=== PATIENT | male | born 1990 | race Caucasian/White ===

== ENCOUNTER 2018-01-14 22:56 | Emergency (ER) | payer BC ==
[2018-01-14 22:56] VITALS: BMI 25.5
[2018-01-14] MEDS ORDERED: DiphenhydrAMINE 50 mg/ml Inj ONE (23:06)
--- NOTE | 2018-01-14 23:06 | C.PDOC ---
History Of Present Illness 27 year old male presents to the emergency department status-post eating rice, which may have had seafood in it. Patient states that he began wheezing, and felt like his throat was closing. Patient describes his discomfort as 5/10 in severity, but he denies fever, chills, nausea, and vomiting. Patient is able to tolerate PO. Time Seen by Provider: 01/14/18 23:05 Chief Complaint (Nursing): Allergic Reaction History Per: Patient History/Exam Limitations: no limitations Onset/Duration Of Symptoms: Hrs Current Symptoms Are (Timing): Still Present Context: Food Associated Symptoms: Other (wheezing) Severity: Moderate Pain Scale Rating Of: 5 Past Medical History Reviewed: Historical Data, Nursing Documentation, Vital Signs - Medical History PMH: No Chronic Diseases Denies: Depression Surgical History: No Surg Hx - [facility] Procedures INJECT/INFUSE ELECTROLYT (05/07/12) INJECT/INFUSE NEC (05/07/12) VENOUS PUNCTURE NEC (05/07/12) Family History: States: No Known Family Hx - Social History Hx Tobacco Use: No Hx Alcohol Use: Yes Hx Substance Use: No Review Of Systems Cardiovascular: Negative for: Chest Pain, Palpitations Respiratory: Positive for: Wheezing. Negative for: Cough, Shortness of Breath Physical Exam - Physical Exam Appears: Non-toxic, In Acute Distress (moderate) Skin: Warm, Dry Head: Normacephalic Eye(s): bilateral: Normal Inspection, PERRL, EOMI Oral Mucosa: Moist Tongue: No Swelling Lips: No Swelling Throat: No Erythema, No Exudate, Other (oropharynx clear) Neck: Trachea Midline, Supple Chest: Symmetrical, No Tenderness Cardiovascular: Rhythm Regular, No Murmur Respiratory: No Rales, No Rhonchi, No Wheezing (few scattered wheezes) Gastrointestinal/Abdominal: Soft, No Tenderness, No Guarding, No Rebound Neurological/Psych: Oriented x3, Normal Speech (speaking full sentences) ED Course And Treatment O2 Sat by Pulse Oximetry: 98 Pulse Ox Interpretation: Normal Progress Note: Plan: Benadryl 25mg IVP. Pepcid 20mg IVP. Solu-Medrol 125mg IVP. NaCl IV Fluids Reevaluation Time: 23:58 Reassessment Condition: Improved Critical Care Time - Critical Care Note Total Time (in mins): 30 Documented critical care: time excludes all time spent performing seperately billable procedures. Disposition Counseled Patient/Family Regarding: Studies Performed, Diagnosis, Need For F ollowup - Disposition Referrals: [facility] [Outside] [facility] [Outside] Disposition: HOME/ ROUTINE Disposition Time: 23:06 Condition: FAIR Additional Instructions: Please also use benadryl, pepcid and claritin. Do return if symptoms recur Prescriptions: Epinephrine [Epipen] 0.3 mg IJ ONCE PRN #2 auto.injct PRN Reason: Anaphylaxis Prednisone [Deltasone] 20 mg PO DAILY #5 tablet Instructions: Food Allergy Forms: [employer] (I[place]ic) - Clinical Impression Clinical Impression: Allergic reaction - Scribe Statement The provider has reviewed the documentation as recorded by the Scribe (Geoff Marion) Provider Attestation: All medical record entries made by the Scribe were at my direction and personally dictated by me. I have reviewed the chart and agree that the record accurately reflects my personal performance of the history, physical exam, medical decision making, and the department course for this patient. I have also personally directed, reviewed, and agree with the discharge instructions and disposition.
[2018-01-14] MEDS ORDERED: DiphenhydrAMINE 50 mg/ml Inj IVP STA (23:07)
[2018-01-14] MEDS ORDERED: Albuterol 0.083% Inhal Sol (2.5 mg/3 mL) UD ONE (23:07)
[2018-01-14] MEDS ORDERED: Sodium Chloride 0.9% 1,000 ML IV ONE (23:07)
[2018-01-14 23:19] VITALS: TEMP 98.5
[2018-01-14 23:28] VITALS: PULSE 94; RESP 20; O2SAT 98
[2018-01-14 23:30] VITALS: BP 163/76
[2018-01-15] MEDS ORDERED: Sodium Chloride 0.9% 500 ML IV ONE ×2 (00:07)
== END 2018-01-15 00:45 | disposition home or self-care (01) ==
LOC: C.ER 22:56 → SUPCPDRO 22:56 → C.ER 01-15 00:45
DX: T78.40XA Allergy, unspecified, initial encounter (principal)
CPT/HCPCS: 96361; 96374; 96375; 99284; J1200; J2930; J7030; J7040